=== PATIENT | male | born 1985 | race Caucasian/White ===

== ENCOUNTER 2019-12-18 10:54 | Emergency (ER) | payer MEDICAID ==
[~2019-12-18] VITALS: Ht 180.3 cm; Wt 72.6 kg
[2019-12-18 11:00] VITALS: BP 120/82
--- NOTE | 2019-12-18 11:00 | NUR ---
ED Nurse Note: pt BIB [facility] for fentanyl overdose. Per report pt received 6 doses of narcan. Pt is awake alert oriented x4. Pt is crying but denies pain. Pt denies SI. Vital signs stable as documented.
--- NOTE | 2019-12-18 11:42 | Emergency Room Report ---
History of Present Illness General Chief Complaint: Overdose Source: Patient Present Illness HPI Patient is a 34-year-old male brought in by EMS after reported opiate overdose. Patient reports taking 1 hit of fentanyl. Had been given Narcan prior to arrival by EMS intranasally as well as intramuscularly. Patient had improvement in his mental status subsequently. Allergies: Coded Allergies: No Known Allergies (Unverified , 12/18/19) COVID-19 Screening Contact w/high risk pt: No Experienced COVID-19 symptoms?: No COVID-19 Testing performed RESEARCH AIDE: No Patient History Past Medical History: see triage record Reviewed Nursing Documentation: PMH: Agreed; PSxH: Agreed Nursing Documentation-PMH Past Medical History: No Stated History Review of Systems All Other Systems: negative except mentioned in HPI Physical Exam Vital Signs Date Time Temp Pulse Resp B/P (MAP) Pulse Ox O2 Delivery O2 Flow Rate FiO2 12/18/19 10:50 97 16 127/78 (94) 94 Room Air Sp02 EP Interpretation: reviewed, normal General Appearance: normal inspection, well appearing, no apparent distress, alert, GCS 15 Head: atraumatic ENT: normal ENT inspection, hearing grossly normal, normal voice Neck: normal inspection, full range of motion, supple, no bony tend Respiratory: normal inspection, lungs clear, normal breath sounds, no respiratory distress, no retraction, no wheezing Cardiovascular #1: regular rate, rhythm, no edema Gastrointestinal: normal inspection, normal bowel sounds, non tender, soft, no guarding, no hernia Genitourinary: no CVA tenderness Musculoskeletal: normal inspection, back normal, normal range of motion Neurologic: alert, motor strength/tone normal, counter intelligence III-XII nml as tested, oriented x3, responsive, speech normal, normal inspection Psychiatric: normal inspection, judgement/insight normal, mood/affect normal Medical Decision Making Diagnostic Impression: Primary Impression: Drug overdose ER Course Patient presented for opiate overdose. Differential diagnosis include was not limited to a long-acting opiate,, Co. ingestion, among others. Patient has a benign exam and does not appear to require any imaging or laboratory testing at this time.Patient observed in the emergency department had no recurrence of somnolence. Patient was noted to be awake and alert. He was able to tolerate oral fluids. Patient was noted to be ambulatory without assistance. He was given prescription for Narcan. Patient was advised to stop using drugs. The patient is advised to follow up with primary care doctor in 1-2 days. Patient is advised to return if any worsening condition or if any changes in status that are concerning. This report is dictated with [employer] nipple maker software which may occasionally lead to discrepancies related to use of this software. Last Vital Signs Date Time Temp Pulse Resp B/P (MAP) Pulse Ox O2 Delivery O2 Flow Rate FiO2 12/18/19 10:50 97 16 127/78 (94) 94 Room Air Scripts Naloxone HCl (Narcan) 4 Mg Coleman 4 MG NS ONCE for overdose, #1 SPRAY Prov: Viet Cosby MD 12/18/19 Viet Cosby MD Dec 18, 2019 11:42
[2019-12-18] MEDS ORDERED: NARCAN4 MG NS (12:38)
[2019-12-18 12:53] VITALS: BP 112/73
--- NOTE | 2019-12-18 12:53 | NUR ---
ER DISCHARGE NOTE: Patient is cleared to be discharged per ERMD, pt is aox4, on room air, with stable vital signs. pt was given dc and prescription instructions, pt was able to verbalize understanding, pt id band and iv site removed without complications. pt is able to ambulate with steady gait. pt took all belongings.
== END 2019-12-18 12:53 | disposition home or self-care (01) ==
LOC: EDBD 10:54 → EMR 12:00
DX: T40.4X1A Poisoning by other synthetic narcotics, accidental (unintentional), initial encounter (principal); X58.XXXA Exposure to other specified factors, initial encounter; Y92.9 Unspecified place or not applicable
CPT/HCPCS: 99282